=== PATIENT | female | born 1950 | race Caucasian/White ===

== ENCOUNTER → 2017-07-18 | Outpatient (CLI) | payer BC ==
[~2017-07-18] MED LIST: AMLO5 PO; ASPI81EC PO; Aspirin EC81 MG; ERGO400 PO; GABA300 PO; GABA800 PO; HYDCHL12.5 PO; IBUP800 PO; OMEP20ER PO; OXYB5 PO; OXYC5 PO; PARO20 PO; PRAM.5 PO; TOLT4 PO; VALS80 PO; XARELTO20 MG PO
[2017-07-20 12:41] LABS: HPV Genotype 16 Not Detected (NOTDET); HPV Genotype 18 Not Detected (NOTDET)
[2017-07-24 10:40] LABS: HPV High Risk Other Not Detected (NOTDET)
== END | disposition home or self-care (01) ==
LOC: OLS 17:19
PROVIDERS: Obstetrics & Gynecology Gynecology
DX: Z12.4 Encounter for screening for malignant neoplasm of cervix (principal)
CPT/HCPCS: 87624; G0123

== ENCOUNTER 2017-07-24 14:44 | Day surgery (SDC) | payer MEDICARE, BC ==
[~2017-07-24] VITALS: Ht 165.1 cm; Wt 127.2 kg
[~2017-07-24 14:44] MED LIST changes: -Aspirin EC81 MG
[2017-07-24] MEDS ORDERED: Aspirin EC81 MG (15:05)
== END 2017-07-24 17:08 | disposition home or self-care (01) ==
LOC: ORSCSDS 14:44
PROVIDERS: Obstetrics & Gynecology Gynecology
PROC: 0UDB7ZX Extraction of Endometrium, Via Natural or Artificial Opening, Diagnostic (ICD-10-PCS; principal; 2017-07-24 16:00)
PROC: 0UJD8ZZ Inspection of Uterus and Cervix, Via Natural or Artificial Opening Endoscopic (ICD-10-PCS; principal; 2017-07-24 16:00)
DX: N95.0 Postmenopausal bleeding (principal); I10 Essential (primary) hypertension; E78.00 Pure hypercholesterolemia, unspecified; E11.9 Type 2 diabetes mellitus without complications; E78.5 Hyperlipidemia, unspecified; F32.9 Major depressive disorder, single episode, unspecified; Z79.899 Other long term (current) drug therapy; E66.01 Morbid (severe) obesity due to excess calories; Z68.42 Body mass index [BMI] 45.0-49.9, adult
CPT/HCPCS: 88305; J0690; J1100; J1885; J2405; J7120

== ENCOUNTER → 2017-08-24 | Outpatient (CLI) | payer MEDICARE, BC ==
[~2017-08-24] MED LIST changes: +Aspirin EC81 MG
== END | disposition home or self-care (01) ==
LOC: OLS 13:25
DX: M10.072 Idiopathic gout, left ankle and foot (principal)
CPT/HCPCS: 36415; 84550

== ENCOUNTER 2017-10-23 08:55 | Day surgery (SDC) | payer MEDICARE, BC ==
[~2017-10-23] VITALS: Ht 162.6 cm; Wt 123.1 kg
== END 2017-10-23 11:05 | disposition home or self-care (01) ==
LOC: ORSCSDS 08:55
PROVIDERS: Internal Medicine Gastroenterology
PROC: 0DBL8ZX Excision of Transverse Colon, Via Natural or Artificial Opening Endoscopic, Diagnostic (ICD-10-PCS; principal; 2017-10-23 10:15)
DX: Z12.11 Encounter for screening for malignant neoplasm of colon (principal); D12.3 Benign neoplasm of transverse colon; K57.30 Diverticulosis of large intestine without perforation or abscess without bleeding; Z86.010 Personal history of colon polyps; Z83.71 Family history of colonic polyps; I10 Essential (primary) hypertension; E78.00 Pure hypercholesterolemia, unspecified; G25.81 Restless legs syndrome; F32.9 Major depressive disorder, single episode, unspecified; Z79.899 Other long term (current) drug therapy; E66.9 Obesity, unspecified; Z68.42 Body mass index [BMI] 45.0-49.9, adult
CPT/HCPCS: 82947; 88305; J2250; J7120

== ENCOUNTER → 2021-03-17 | Outpatient (CLI) | payer MEDICARE, BC | LOC: LAB 11:49 → LAB SHORT 11:49 | DX: D48.5 Neoplasm of uncertain behavior of skin (principal); Z88.5 Allergy status to narcotic agent | CPT/HCPCS: 88305 ==

== ENCOUNTER → 2022-05-05 | Outpatient (CLI) | payer MEDICARE, BC | END | disposition home or self-care (01) | LOC: LAB SHORT 11:14 | DX: N30.01 Acute cystitis with hematuria (principal) | CPT/HCPCS: 87077; 87086; 87186 ==

== ENCOUNTER → 2022-06-09 | Outpatient (CLI) | payer MEDICARE, BC | END | disposition home or self-care (01) | LOC: LAB SHORT 18:59 | DX: N39.0 Urinary tract infection, site not specified (principal) | CPT/HCPCS: 87077; 87086; 87186 ==

== ENCOUNTER 2022-09-29 10:41 | Day surgery (SDC) | payer MEDICARE, BC ==
[~2022-09-29] VITALS: Ht 165.1 cm; Wt 123.0 kg
[2022-09-29] MEDS ORDERED: LOVA40 (10:59)
[2022-09-29] MEDS ORDERED: FAMO20 (10:59)
[2022-09-29] MEDS ORDERED: ALLO100 (10:59)
[2022-09-29] MEDS ORDERED: BUPR150ER (10:59)
[2022-09-29] MEDS ORDERED: LOSARTAN-HCTZ1 EACH (11:00)
[2022-09-29 13:16] VITALS: BP 121/72
== END 2022-09-29 13:22 | disposition home or self-care (01) ==
LOC: ORSCSDS 10:41
PROVIDERS: Internal Medicine Gastroenterology
PROC: 0DJD8ZZ Inspection of Lower Intestinal Tract, Via Natural or Artificial Opening Endoscopic (ICD-10-PCS; principal; 2022-09-29 12:00)
DX: R19.7 Diarrhea, unspecified (principal); K57.30 Diverticulosis of large intestine without perforation or abscess without bleeding; Z86.010 Personal history of colon polyps; Z83.71 Family history of colonic polyps; I10 Essential (primary) hypertension; E78.5 Hyperlipidemia, unspecified; G47.33 Obstructive sleep apnea (adult) (pediatric); K21.9 Gastro-esophageal reflux disease without esophagitis; E66.01 Morbid (severe) obesity due to excess calories; Z68.42 Body mass index [BMI] 45.0-49.9, adult; Z79.899 Other long term (current) drug therapy
CPT/HCPCS: 82947; J2250; J2704; J7120

== ENCOUNTER → 2022-11-23 | Outpatient (CLI) | payer MEDICARE, BC ==
[~2022-11-23] MED LIST changes: +ALLO100; +BUPR150ER; +FAMO20; +LOSARTAN-HCTZ1 EACH; +LOVA40
== END | disposition home or self-care (01) ==
LOC: LAB 14:51 → LAB SHORT 14:51
DX: L08.9 Local infection of the skin and subcutaneous tissue, unspecified (principal)
CPT/HCPCS: 87070; 87077; 87147; 87186; 87205

== ENCOUNTER → 2024-05-16 | Outpatient (CLI) | payer MEDICARE, BC | LOC: LAB SHORT 13:41 → LAB 13:41 | DX: N39.0 Urinary tract infection, site not specified (principal) | CPT/HCPCS: 87077; 87086; 87186 ==